=== PATIENT | male | born 1940 | race Caucasian/White ===

== ENCOUNTER 2020-08-30 08:00 | Day surgery (SDC) | payer MEDICARE, OTHER ==
[~2020-08-30] VITALS: Ht 185.4 cm; Wt 95.8 kg
[2020-08-30] VITALS (10 sets, daily range): BP systolic 114–139; BP diastolic 57–95; PULSE 33–49; TEMP 97.8
[2020-08-30 09:00] LABS: HEMATOCRIT 44.5 % (42.0-52.0); HEMOGLOBIN 14.7 g/dl (13.5-18.0); MEAN CELL VOLUME 95 fl (80.0-100.0); MEAN CORPUSCULAR HEMOGLOBIN 31 pg (27.0-31.0); MEAN CORPUSCULAR HGB CONC 33 g/dl (33.0-37.0); MEAN PLATELET VOLUME 9.8 fl (7.4-10.4); PLATELET COUNT 214 K/mm3 (130-400); RED BLOOD COUNT 4.68 M/mm3 (4.20-5.60); REDCELL DISTRIBUTION WIDTH-CV 13.4 % (11.5-14.5)
[2020-08-30 09:03] LABS: INR 1.1 (0.8-3.0); PROTHROMBIN TIME 12.3 SECONDS (9.7-12.8)
[2020-08-30] MEDS ORDERED: TIKOSYN0.25 MG PO (09:04)
[2020-08-30] MEDS ORDERED: LEVOXYL0.112 MG PO (09:04)
[2020-08-30 09:05] LABS: ALBUMIN 4.1 gm/dL (3.5-5.0); BILIRUBIN,TOTAL 0.9 mg/dL (0.0-1.0); CREATININE, serum 1.21 (0.66-1.25); MAGNESIUM 2.3 mg/dL (1.6-2.3); POTASSIUM 4.2 mmol/L (3.4-5.0)
[2020-08-30] MEDS ORDERED: ELIQUIS 5MG PO (09:05)
[2020-08-30 09:06] LABS: PARTIAL THROMBOPLASTIN TIME 33.1 SECONDS (26.0-37.0)
[2020-08-30] MEDS ORDERED: ASPIRIN E.C. 8181 MG PO (09:06)
[2020-08-30] MEDS ORDERED: MSM1000 MG PO (09:07)
[2020-08-30] MEDS ORDERED: MASON NATURAL500 MG PO (09:08)
[2020-08-30] MEDS ORDERED: B-121000 MCG PO (09:08)
[2020-08-30] MEDS ORDERED: B COMPLEX #11 TA1 PO (09:09)
[2020-08-30] MEDS ORDERED: CALCIUM/MAGNESI1 T13 PO (09:10)
[2020-08-30] MEDS ORDERED: NATURAL ODORLE400 MG PO (09:11)
[2020-08-30] MEDS ORDERED: GINGER ROOT EX250 MG PO (09:11)
[2020-08-30] MEDS ORDERED: NATURAL POTASS595 MG PO (09:12)
[2020-08-30] MEDS ORDERED: CURCUMIN95% PO (09:13)
[2020-08-30] MEDS ORDERED: THE MEDICINE S200 M2 PO (09:13)
--- NOTE | 2020-08-30 11:59 | NUR ---
Pt back from [employer], pt is alert and oriented, pwd, denies complaints. TR band to rt wrist, cms intact distal. Pt aware of poc, call light in reach, lunch ordered. at bs. nsr on monitor.
[2020-08-30] MEDS ORDERED: NORVASC2.5 MG PO (12:32)
[2020-08-30] MEDS ORDERED: IMDUR 30MG30 MG/TAB PO (12:33)
[2020-08-30] MEDS ORDERED: LIPITOR 40MG TA40 MG PO (12:33)
--- NOTE | 2020-08-30 15:15 | NUR ---
Pt ready for departure at this time. TR band was deflated with no problem, site dressed with bandaid, folded 2x2 and coban. cms remains intact distal. Pt had lunch during his recovery, he has been up and about in his room with steady gait. Pt has remained sinus tico 30's while at rest, hr increased wtih activity. pt denies any symptoms such as dizziness etc. IV was dc'd with cath intact, dressing applied. to exit via wheelchair
== END 2020-08-30 15:45 | disposition home or self-care (01) ==
LOC: COL.CAR
PROVIDERS: Internal Medicine Cardiovascular Disease
DX: I25.10 Atherosclerotic heart disease of native coronary artery without angina pectoris (principal); I48.91 Unspecified atrial fibrillation; I08.3 Combined rheumatic disorders of mitral, aortic and tricuspid valves; J61 Pneumoconiosis due to asbestos and other mineral fibers; E03.9 Hypothyroidism, unspecified; Z87.891 Personal history of nicotine dependence; Z79.01 Long term (current) use of anticoagulants; Z90.89 Acquired absence of other organs; Z79.899 Other long term (current) drug therapy; Z88.0 Allergy status to penicillin; Z20.822 Contact with and (suspected) exposure to COVID-19; Z83.3 Family history of diabetes mellitus; Z80.0 Family history of malignant neoplasm of digestive organs
CPT/HCPCS: J1644; J2250; J3010

== ENCOUNTER → 2020-11-08 | Outpatient (CLI) | payer MEDICARE, OTHER ==
[~2020-11-08] MED LIST: ASPIRIN E.C. 8181 MG PO; B COMPLEX #11 TA1 PO; B-121000 MCG PO; CALCIUM/MAGNESI1 T13 PO; CURCUMIN95% PO; ELIQUIS 5MG PO; GINGER ROOT EX250 MG PO; IMDUR 30MG30 MG/TAB PO; LEVOXYL0.112 MG PO; LIPITOR 40MG TA40 MG PO; MASON NATURAL500 MG PO; MSM1000 MG PO; NATURAL ODORLE400 MG PO; NATURAL POTASS595 MG PO; NORVASC2.5 MG PO; THE MEDICINE S200 M2 PO; TIKOSYN0.25 MG PO
== END ==
LOC: ZCOL.LAB 09:33
DX: Z01.812 Encounter for preprocedural laboratory examination (principal); Z20.822 Contact with and (suspected) exposure to COVID-19

== ENCOUNTER 2021-03-18 18:56 | Emergency (ER) | payer MEDICARE, OTHER ==
[~2021-03-18] VITALS: Ht 185.4 cm; Wt 90.9 kg
[2021-03-18 19:07] VITALS: TEMP 97
[2021-03-18 19:18] LABS: BASO % 0.4 % (0.0-2.0); EOS # 0.2 (0.0-0.7); GRAN # 3.8 (1.4-6.5); LYMPH # 2.1 (1.2-3.4); LYMPH % 31.2 % (20.0-51.0); MEAN CELL VOLUME 96 fl (80.0-100.0); MEAN CORPUSCULAR HEMOGLOBIN 31 pg (27.0-31.0); MEAN CORPUSCULAR HGB CONC 33 g/dl (33.0-37.0); MEAN PLATELET VOLUME 9.6 fl (7.4-10.4); MONO # 0.6 (0.1-0.6); MONO % 9.3 % (1.7-9.3); PLATELET COUNT 211 K/mm3 (130-400); RED BLOOD COUNT 4.48 M/mm3 (4.20-5.60); REDCELL DISTRIBUTION WIDTH-CV 14.5 % (11.5-14.5)
[2021-03-18 20:16] LABS: ALBUMIN 4.1 gm/dL (3.4-4.8); BILIRUBIN,TOTAL 0.8 mg/dL (0.2-1.2); CALCIUM 9.2 mg/dL (8.4-10.2); CREATININE, serum 1.32 mg/dL (0.72-1.25); POTASSIUM 4.1 mmol/L (3.5-4.5); TOTAL PROTEIN 6.9 gm/dL (6.2-8.1)
[2021-03-18 20:21] LABS: TROPONIN-I 0.032 ng/mL (0.00-0.033)
[2021-03-18 20:42] VITALS: BP 144/78; PULSE 76
== END 2021-03-18 20:42 | disposition home or self-care (01) ==
LOC: COL.ER 18:56
PROVIDERS: Emergency Medicine
DX: R07.89 Other chest pain (principal); I10 Essential (primary) hypertension; I48.0 Paroxysmal atrial fibrillation; Z95.0 Presence of cardiac pacemaker; Z79.01 Long term (current) use of anticoagulants; Z79.899 Other long term (current) drug therapy

== ENCOUNTER 2023-03-07 09:04 | Emergency (ER) | payer MEDICARE, OTHER ==
[~2023-03-07] VITALS: Ht 182.9 cm; Wt 72.7 kg
[~2023-03-07 09:04] MED LIST changes: +ALBUTEROL0.83 MG/ML IH; +ASPIRIN 81M81 MG/TA2 PO; +CALCIUM 600MG+D1 TAB PO; -CALCIUM/MAGNESI1 T13 PO; +COREG 3.123.125 MG/T PO; +ELDERBERRY PO; +GABA PO; +GRAPE SEED EXTR1 CAP PO; +HAWTHORN BERRIES PO; +LASIX 40MG TABL40 MG PO; +MAGNESIUM500 MG PO; +NATTOKINASE50 MG PO; +NATURAL E400 IU PO; +PLAVIX 75MG TAB75 MG PO; +PROAIR HFA0.09 MG/AC IH; +SINGULAIR 110 MG/TAB PO; +TRELEGY ELLIPT1 EACH; +VITAMINC1000TA PO; +ZYRTEC 10MG10 MG PO
[2023-03-07 09:12] VITALS: TEMP 97.6
[2023-03-07 09:20] LABS: BASO % 0.3 % (0.0-2.0); EOS % 0.2 % (0.0-4.0); GRAN # 7.6 K/mm3 (1.4-6.5); GRAN % 77.3 % (42.2-75.2); HEMATOCRIT 44.9 % (42.0-52.0); HEMOGLOBIN 14.8 g/dl (13.5-18.0); LYMPH # 1.2 K/mm3 (1.2-3.4); LYMPH % 11.6 % (20.0-51.0); MEAN CELL VOLUME 98 fl (80.0-100.0); MEAN CORPUSCULAR HEMOGLOBIN 32 pg (27-31); MEAN CORPUSCULAR HGB CONC 33 g/dl (33.0-37.0); MEAN PLATELET VOLUME 9.5 fl (7.4-10.4); MONO % 10.3 % (1.7-9.3); PLATELET COUNT 225 K/mm3 (130-400); RED BLOOD COUNT 4.59 M/mm3 (4.20-5.60); REDCELL DISTRIBUTION WIDTH-CV 15.3 % (11.5-14.5)
[2023-03-07 09:35] LABS: BILIRUBIN,TOTAL 2.3 mg/dL (0.2-1.2); CREATININE, serum 1.25 mg/dL (0.72-1.25); POTASSIUM 4.3 mmol/L (3.5-4.5); TOTAL PROTEIN 7.6 gm/dL (6.2-8.1)
[2023-03-07 09:44] LABS: TROPONIN-I 0.059 ng/mL (0.00-0.033)
[2023-03-07] MEDS ORDERED: SYNTHROID0.125 MG/T PO (18:02)
[2023-03-07] MEDS ORDERED: ALDACTONE50 MG PO (18:03)
[2023-03-07] MEDS ORDERED: COREG12.5 MG PO (18:03)
[2023-03-07] MEDS ORDERED: K-TAB20 PO (18:05)
[2023-03-07] MEDS ORDERED: VITAMINC1000TA (18:07)
[2023-03-07] MEDS ORDERED: VITAMIN B COMPL1 SGL PO (18:07)
[2023-03-07] MEDS ORDERED: MAGNESIUM500 MG PO (18:07)
[2023-03-07] MEDS ORDERED: THE MEDICINE S200 M2 PO (18:08)
[2023-03-07] MEDS ORDERED: NATURAL ODORLE400 MG PO (18:08)
[2023-03-07] MEDS ORDERED: GINGER ROOT EX250 MG PO (18:08)
[2023-03-07] MEDS ORDERED: GRAPE SEED EXTR1 CAP PO (18:09)
[2023-03-07] MEDS ORDERED: TURMERIC500 MG PO (18:09)
[2023-03-07] MEDS ORDERED: PROLEEVA 1,401400 MG PO (18:10)
[2023-03-07 18:44] VITALS: BP 120/78; PULSE 67
== END 2023-03-07 18:40 | disposition short-term general hospital (02) ==
LOC: COL.ER 09:04
PROVIDERS: Emergency Medicine
DX: I21.4 Non-ST elevation (NSTEMI) myocardial infarction (principal); Z28.310 Unvaccinated for COVID-19
CPT/HCPCS: J1940; Q9967

== ENCOUNTER → 2023-04-21 | Outpatient (RCR) | payer MEDICARE, OTHER ==
[~2023-04-21] MED LIST changes: +ALDACTONE50 MG PO; +COREG12.5 MG PO; +K-TAB20 PO; +PROLEEVA 1,401400 MG PO; +SYNTHROID0.125 MG/T PO; +TURMERIC500 MG PO; +VITAMIN B COMPL1 SGL PO; +VITAMINC1000TA
== END | disposition home or self-care (01) ==
LOC: COL.CR
DX: J44.9 Chronic obstructive pulmonary disease, unspecified (principal)

== ENCOUNTER → 2023-05-21 | Outpatient (RCR) | payer MEDICARE, OTHER | END | disposition home or self-care (01) | LOC: COL.CR | DX: J44.9 Chronic obstructive pulmonary disease, unspecified (principal) ==

== ENCOUNTER 2023-06-18 11:22 | Outpatient (RCR) | payer MEDICARE, OTHER | END 2023-06-21 | disposition home or self-care (01) | LOC: COL.CR | DX: J44.9 Chronic obstructive pulmonary disease, unspecified (principal) ==

== ENCOUNTER 2023-07-16 12:49 | Outpatient (RCR) | payer MEDICARE, OTHER | END 2023-07-22 | disposition home or self-care (01) | LOC: COL.CR | DX: J44.9 Chronic obstructive pulmonary disease, unspecified (principal) ==

== ENCOUNTER 2023-08-18 14:51 | Outpatient (RCR) | payer MEDICARE, OTHER | END 2023-08-20 | disposition home or self-care (01) | LOC: COL.CR | DX: J44.9 Chronic obstructive pulmonary disease, unspecified (principal) ==

== ENCOUNTER 2023-09-28 15:47 | Emergency (ER) | payer MEDICARE, OTHER ==
[~2023-09-28] VITALS: Ht 182.9 cm; Wt 83.2 kg
[2023-09-28 15:53] VITALS: TEMP 97.9
[2023-09-28 16:21] LABS: BASO % 0.5 % (0.0-2.0); EOS # 0.3 K/mm3 (0.0-0.7); GRAN # 5.3 K/mm3 (1.4-6.5); GRAN % 70.9 % (42.2-75.2); HEMATOCRIT 44.8 % (42.0-52.0); HEMOGLOBIN 15.1 g/dl (13.5-18.0); LYMPH # 0.9 K/mm3 (1.2-3.4); LYMPH % 12.1 % (20.0-51.0); MEAN CELL VOLUME 100 fl (80.0-100.0); MEAN CORPUSCULAR HEMOGLOBIN 34 pg (27-31); MEAN CORPUSCULAR HGB CONC 34 g/dl (33.0-37.0); MEAN PLATELET VOLUME 9.6 fl (7.4-10.4); MONO # 0.9 K/mm3 (0.1-0.6); MONO % 12.1 % (1.7-9.3); PLATELET COUNT 259 K/mm3 (130-400); RED BLOOD COUNT 4.47 M/mm3 (4.20-5.60); REDCELL DISTRIBUTION WIDTH-CV 16.1 % (11.5-14.5)
[2023-09-28 16:28] LABS: ALBUMIN 3.6 g/dL (3.4-4.8); CALCIUM 9.7 mg/dL (8.4-10.2); CREATININE, serum 1.86 mg/dL (0.72-1.25); POTASSIUM 4.3 mEq/L (3.5-4.5); TOTAL PROTEIN 7.2 g/dl (6.2-8.1)
[2023-09-28] MEDS ORDERED: Amiodarone 450 MG in D5W Excel 250 ML IV SCH ×2 (16:31→22:31)
[2023-09-28 16:35] LABS: TROPONIN-I 0.097 ng/mL (0.00-0.033)
[2023-09-28] MEDS ORDERED: Ondansetron 4 MG/2 ML VIAL IV ONE (16:45)
[2023-09-28] MEDS ORDERED: Midazolam 2 MG/2 ML VIAL IV ONE (16:45)
[2023-09-28] MEDS ORDERED: NS 1,000 ML IV ONE (17:00)
[2023-09-28] MEDS ORDERED: Furosemide 100 MG/10 ML VIAL IV ONE (17:30)
[2023-09-28 19:05] VITALS: BP 99/73; PULSE 81
== END 2023-09-28 19:05 | disposition short-term general hospital (02) ==
LOC: COL.ER 15:47
PROVIDERS: Physician Assistant
DX: I47.20 Ventricular tachycardia, unspecified (principal); I35.0 Nonrheumatic aortic (valve) stenosis; I50.9 Heart failure, unspecified; E87.70 Fluid overload, unspecified; I48.91 Unspecified atrial fibrillation; J84.10 Pulmonary fibrosis, unspecified; Z95.5 Presence of coronary angioplasty implant and graft
CPT/HCPCS: J0282; J1940; J2250; J2405; J2704; J3475; J7030; J7060